=== PATIENT | female | born 1965 | race Native Hawaiian/Other Pacific Islander ===

== ENCOUNTER 2016-06-09 07:58 | Outpatient (CLI) | payer OTHER ==
[~2016-06-09 07:58] MED LIST: AMLO2.5T PO; ASPIR-8181 MG PO; CIPRO500 MG PO; EQ ASPIRIN325 M1 OR; FURO20TA67 PO; METO50TA27 PO; METOPROLOL25 M1 OR; OMEPRAZOLE20 M1 OR; PRAVACHOL20 MG PO; RANO500T PO; ZESTRIL40 MG OR
== END 2016-06-09 19:10 | disposition home or self-care (01) ==
LOC: NM 07:58
DX: Z01.810 Encounter for preprocedural cardiovascular examination (principal)
CPT/HCPCS: A9500; J2785

== ENCOUNTER 2016-06-27 18:52 | Emergency (ER) | payer BC ==
[~2016-06-27] VITALS: Ht 162.6 cm; Wt 108.9 kg
[2016-06-27] MEDS ORDERED: METO50TA27 PO (19:03)
[2016-06-27] MEDS ORDERED: MOBIC15 MG PO (19:03)
[2016-06-27] MEDS ORDERED: TRAM50TA PO (19:04)
[2016-06-27 20:42] LABS: PLATELET COUNT 208 K/uL (152-353)
[2016-06-27 20:53] LABS: SODIUM 130 mmol/L (136-145)
[2016-06-28 00:54] VITALS: BP 187/115; TEMP 98
== END 2016-06-28 00:59 | disposition home or self-care (01) ==
LOC: ED 18:52
PROVIDERS: Emergency Medicine
DX: R10.9 Unspecified abdominal pain (principal)
CPT/HCPCS: 36415; 80053; 81000; 82150; 83690; 85027; 96374; 96375; 99283; J1885; J2405; Q9963

== ENCOUNTER 2016-07-23 18:54 | Emergency (ER) | payer BC ==
[~2016-07-23] VITALS: Ht 162.6 cm; Wt 108.9 kg
[~2016-07-23 18:54] MED LIST changes: +MOBIC15 MG PO; +TRAM50TA PO
[2016-07-23 20:32] VITALS: BP 188/92; TEMP 98.6
[2016-07-23 23:22] LABS: PLATELET COUNT 181 K/uL (152-353)
[2016-07-23 23:44] LABS: POTASSIUM 3.8 mmol/L (3.6-5.2); SODIUM 135 mmol/L (136-145)
== END 2016-07-24 02:34 | disposition short-term general hospital (02) ==
LOC: ED 18:54
PROVIDERS: Specialist
DX: I24.9 Acute ischemic heart disease, unspecified (principal); I25.10 Atherosclerotic heart disease of native coronary artery without angina pectoris
CPT/HCPCS: 36600; 80048; 82550; 82553; 82805; 83735; 83880; 84484; 85027; 85379; 85610; 93005; 96374; 99284; J1650; J2270

== ENCOUNTER 2016-07-24 02:32 | Outpatient (CLI) | payer BC | END 2016-07-24 03:55 | disposition short-term general hospital (02) | LOC: AMB 02:32 | DX: I24.9 Acute ischemic heart disease, unspecified (principal); I25.10 Atherosclerotic heart disease of native coronary artery without angina pectoris | CPT/HCPCS: A0425; A0427 ==

== ENCOUNTER 2016-08-03 22:44 | Emergency (ER) | payer BC ==
[~2016-08-03] VITALS: Ht 162.6 cm; Wt 108.9 kg
[2016-08-03] MEDS ORDERED: CLOP75TA2 PO (22:56)
[2016-08-03] MEDS ORDERED: ASPIRIN ADULT L81 MG OR (22:57)
[2016-08-04 00:05] LABS: PLATELET COUNT 269 K/uL (152-353)
[2016-08-04 00:22] VITALS: BP 188/89; TEMP 99.4
== END 2016-08-04 00:28 | disposition home or self-care (01) ==
LOC: ED 22:44
DX: R50.9 Fever, unspecified (principal); Z98.890 Other specified postprocedural states
CPT/HCPCS: 85027; J0696

== ENCOUNTER 2016-09-11 21:18 | Emergency (ER) | payer BC ==
[~2016-09-11] VITALS: Ht 162.6 cm; Wt 108.9 kg
[~2016-09-11 21:18] MED LIST changes: +ASPIRIN ADULT L81 MG OR; +CLOP75TA2 PO
[2016-09-12 00:26] VITALS: BP 163/88; TEMP 98.4
== END 2016-09-12 00:28 | disposition home or self-care (01) ==
LOC: ED 21:18
PROC: 2W3DX1Z Immobilization of Left Lower Arm using Splint (ICD-10-PCS; principal; 2016-09-11)
DX: S63.592A Other specified sprain of left wrist, initial encounter (principal); W18.09XA Striking against other object with subsequent fall, initial encounter; Y92.098 Other place in other non-institutional residence as the place of occurrence of the external cause
CPT/HCPCS: 99283; L3908

== ENCOUNTER 2016-09-15 21:13 | Observation (INO) | payer BC ==
[~2016-09-15] VITALS: Ht 162.6 cm; Wt 110.9 kg
[2016-09-15 21:17] VITALS: BP 195/98; TEMP 98.3
[2016-09-15 22:21] LABS: PLATELET COUNT 180 K/uL (152-353)
[2016-09-15 22:52] LABS: PARTIAL THROMBOPLASTIN TIME 24.3 SECONDS (24.5-33.6)
[2016-09-15 23:09] LABS: POTASSIUM 3.4 mmol/L (3.6-5.2); SODIUM 133 mmol/L (136-145)
[2016-09-16 02:04] VITALS: BP 146/71; TEMP 98.7; Ht 162.6 cm; Wt 110.9 kg
--- NOTE | 2016-09-16 02:29 | NUR ---
09/16/16 0057 PATIENT ADMITTED TO ROOM 1107 DX CHEST PAIN.PT ORIENTED TO ROOM CALL LIGHT WITHIN REACH.PATIENT STATES SHE IS STILL HAVING SOME CHEST DISCOMFORT.ALERT ORIENTED TALKING AND SMILING NAD NOTED.PATIENT SAID SHE HAS HAD 3 MILD VT,13 STENTS.ASSESSMENT COMPLETED.CC
[2016-09-16 04:00] VITALS: BP 104/54; TEMP 98.6
[2016-09-16 08:00] VITALS: BP 117/63; TEMP 97.7
[2016-09-16 12:00] VITALS: BP 127/62; TEMP 98
--- NOTE | 2016-09-16 15:45 | NUR ---
IV SITE D/C'D WITH TIP INTACT AND SITE CARE DONE. D/C INSTRUCTIONS GIVEN TO PT AND AND BOTH VERBALZIE UNDERSTANDING. PT AMBULATORY OUT WITH NAD. REFUSES W/C
== END 2016-09-16 15:45 | disposition home or self-care (01) ==
LOC: ED 21:13 → MED/SURG 23:55
PROVIDERS: ADMIT Emergency Medicine
DX: R07.89 Other chest pain (principal); I25.2 Old myocardial infarction
CPT/HCPCS: 36415; 80053; 82550; 83880; 84484; 85027; 85610; 85730; 93005; 96365; 96372; 96374; 96375; 96376; 99220; 99284; G0378; J1650; J2270; J2405

== ENCOUNTER 2016-10-25 15:38 | Emergency (ER) | payer BC ==
[~2016-10-25] VITALS: Ht 162.6 cm; Wt 109.3 kg
[2016-10-25 16:33] LABS: POTASSIUM 4.1 mmol/L (3.6-5.2); SODIUM 140 mmol/L (136-145)
[2016-10-25 16:39] LABS: PLATELET COUNT 202 K/uL (152-353)
[2016-10-25 18:58] VITALS: BP 182/84; TEMP 98.4
== END 2016-10-25 19:00 | disposition home or self-care (01) ==
LOC: ED 15:38
DX: K43.9 Ventral hernia without obstruction or gangrene (principal); R10.9 Unspecified abdominal pain
CPT/HCPCS: 80053; 85027; 96374; 96375; 96376; 99284; J1885; J2405; Q9963

== ENCOUNTER 2016-12-18 22:22 | Observation (INO) | payer BC ==
[~2016-12-18] VITALS: Ht 162.6 cm; Wt 110.7 kg
[2016-12-18 22:26] VITALS: BP 216/99
[2016-12-18 22:34] VITALS: BP 216/99; TEMP 98.7
[2016-12-18 23:01] VITALS: BP 197/102
[2016-12-18 23:30] VITALS: BP 181/88
[2016-12-18 23:45] VITALS: BP 180/86
[2016-12-18 23:50] LABS: PLATELET COUNT 191 K/uL (152-353)
[2016-12-18 23:55] LABS: PARTIAL THROMBOPLASTIN TIME 24.2 SECONDS (24.5-33.6)
[2016-12-18 23:58] LABS: POTASSIUM 3.7 mmol/L (3.6-5.2); SODIUM 137 mmol/L (136-145)
[2016-12-19] VITALS (7 sets, daily range): BP systolic 107–186; BP diastolic 58–97; TEMP 97.8–98.6; Ht 162.6 cm; Wt 110.7 kg
[2016-12-19] MEDS ORDERED: LIPITOR40 MG PO (01:55)
[2016-12-19] MEDS ORDERED: ASPIRIN325 M1 OR (01:59)
[2016-12-19 10:34] LABS: PLATELET COUNT 157 K/uL (152-353)
[2016-12-19 10:35] LABS: POTASSIUM 3.6 mmol/L (3.6-5.2); SODIUM 136 mmol/L (136-145)
== END 2016-12-19 18:50 | disposition short-term general hospital (02) ==
LOC: ED 22:22 → MED/SURG 12-19 00:13
PROVIDERS: Emergency Medicine
DX: R07.89 Other chest pain (principal); D72.828 Other elevated white blood cell count; Z72.0 Tobacco use; I25.10 Atherosclerotic heart disease of native coronary artery without angina pectoris; I20.0 Unstable angina
CPT/HCPCS: 36415; 36591; 80053; 81000; 82550; 83735; 84484; 85007; 85027; 85379; 85610; 85730; 93005; 94760; 96372; 96374; 99220; 99284; G0378; J1650; J2270

== ENCOUNTER 2017-01-01 11:38 | Outpatient (CLI) | payer BC ==
[~2017-01-01 11:38] MED LIST changes: +ASPIRIN325 M1 OR; +LIPITOR40 MG PO
[2017-01-01] MEDS ORDERED: RANO500T PO (11:56)
[2017-01-01] MEDS ORDERED: SPIR50TA8 PO (11:57)
[2017-01-01] MEDS ORDERED: HYDR25TA60 PO (11:59)
== END 2017-01-01 11:41 | disposition short-term general hospital (02) ==
LOC: AMB 11:38
DX: R10.84 Generalized abdominal pain (principal); R53.1 Weakness; R11.2 Nausea with vomiting, unspecified
CPT/HCPCS: A0425; A0427

== ENCOUNTER 2017-01-01 11:45 | Emergency (ER) | payer BC ==
[~2017-01-01] VITALS: Ht 162.6 cm; Wt 108.9 kg
[2017-01-01] MEDS ORDERED: RANO500T PO (11:56)
[2017-01-01] MEDS ORDERED: SPIR50TA8 PO (11:57)
[2017-01-01] MEDS ORDERED: HYDR25TA60 PO (11:59)
[2017-01-01 13:22] LABS: PLATELET COUNT 321 K/uL (152-353)
[2017-01-01 13:57] LABS: PARTIAL THROMBOPLASTIN TIME 98.5 SECONDS (24.5-33.6)
[2017-01-01 14:08] LABS: POTASSIUM 4.4 mmol/L (3.6-5.2)
[2017-01-01 15:28] VITALS: BP 93/63; TEMP 95.2
== END 2017-01-01 15:24 | disposition short-term general hospital (02) ==
LOC: ED 11:45
PROVIDERS: Family Medicine
DX: R10.13 Epigastric pain (principal); K21.9 Gastro-esophageal reflux disease without esophagitis; A41.89 Other specified sepsis; E13.10 Other specified diabetes mellitus with ketoacidosis without coma; R11.11 Vomiting without nausea
CPT/HCPCS: 36415; 36600; 51702; 80053; 81000; 82553; 82805; 83605; 84484; 85007; 85027; 85610; 85730; 93005; 96361; 96365; 96372; 96375; 99285; J1815; J2310; J3490

== ENCOUNTER 2017-01-01 15:22 | Outpatient (CLI) | payer BC ==
[~2017-01-01 15:22] MED LIST changes: +HYDR25TA60 PO; +SPIR50TA8 PO
== END 2017-01-01 16:38 | disposition short-term general hospital (02) ==
LOC: AMB 15:22
DX: R10.13 Epigastric pain (principal); K21.9 Gastro-esophageal reflux disease without esophagitis; A41.89 Other specified sepsis; E13.10 Other specified diabetes mellitus with ketoacidosis without coma; R11.11 Vomiting without nausea
CPT/HCPCS: A0425; A0427